=== PATIENT | male | born 1990 | race Caucasian/White ===

== ENCOUNTER 2019-01-08 15:03 | Outpatient (REF) | payer MEDICAID, SELFPAY ==
[2019-01-08 21:46] LABS: Abs Immature Grans 0.03 k/cumm (0.0-0.09); Absolute Basophil Count 0.03 k/cumm (0.0-0.2); Absolute Eosinophil Count 0.11 k/cumm (0.0-0.7); Absolute Monocyte Count 0.42 k/cumm (0.11-0.7); Absolute Neutrophil Count 4.51 k/cumm (1.2-6.7); Basophils % 0.4; Eosinophils % 1.4; HCT 44.9 % (40.0-50.0); HGB 15.1 g/dL (13.5-17.5); Immature Grans % 0.4; Lymphocytes % 36.3; Mean Corp. HGB Concentration 33.6 g/dL (32.0-36.0); Mean Corpuscular Hemoglobin 30.3 pg (27.0-33.0); Mean Platelet Volume 11.2 fL (8.0-11.0); Monocytes % 5.3; Neutrophils % 56.2; Platelet Count 246 x1000/uL (130-400); RBC 4.99 m/cumm (4.50-6.00); RBC Distribution Width 12.9 % (11.8-14.1)
[2019-01-08 22:43] LABS: ALT 20 U/L (12-78); AST 8 U/L (15-37); Albumin 4.4 g/dL (3.4-5.0); Alkaline Phosphatase 95 U/L (46-116); Anion Gap 7.4 mmol/L (3-11); BUN 9 mg/dL (7-18); Bilirubin, Total 0.2 mg/dL (0.2-1.0); CO2 33.6 mmol/L (21.0-32.0); CREATININE 0.95 mg/dL (0.70-1.30); Calcium 9.9 mg/dL (8.5-10.1); Chloride 99 mmol/L (98-107); Glucose 90 mg/dL (70-100); Potassium 4.8 mmol/L (3.5-5.1); Sodium 140 mmol/L (136-145); TSH (W/Ref FT4) 0.72 uIU/mL (0.358-3.74); Total Protein 8.1 g/dL (6.4-8.2); Vitamin B12 432 pg/mL (193-986)
== END 2019-01-08 15:23 ==
LOC: NCHCN 15:03
PROVIDERS: Visit Provider Nurse Practitioner Family
DX: F41.9 Anxiety disorder, unspecified (principal); F32.1 Major depressive disorder, single episode, moderate
CPT/HCPCS: 80053; 82607; 84443; 85025

== ENCOUNTER 2019-01-25 19:01 | Emergency (ER) | payer MEDICAID, SELFPAY ==
[2019-01-25] VITALS (11 sets, daily range): BP systolic 122–138; BP diastolic 62–86; PULSE 72–85; RESP 9–20; TEMP 36.6–37; O2SAT 96–98
[2019-01-25] MEDS: Aspirin 81 MG CHEW 324 MG CH (19:10)
--- NOTE | 2019-01-25 19:12 | W.ED.GENAD ---
Discharge Plan Disposition Patient Disposition: HOME Condition: Stable Discharge Details Chief Complaint: Chest Pain Clinical Impression: Chest pain Primary Care Provider: EDY ESPINOZA ED Provider: Memo Stoll Home Meds and New Rx's Prescriptions: No Action methadone 10 mg/5 mL Solution 105 mg PO DAILY RF: 0 Discharge Instructions Instructions: Chest Pain (ED) Additional Instructions: your blood work, ekg and chest xray were normal. follow up with your primary care provider within 1-2 weeks you can take 1000mg tylenol and 600mg ibuprofen every 6 hours for pain as needed if you have new symptoms such as high fevers or shortness of breath return to the emergency department Medical Decision Making 28 yo male with former substance abuse on methadone, denies drug use recently other than marijuana, smoker, no chronic medical problems, comes in with chest pain on the left anterior chest wall constant for months. Denies fevers, chills, sob, pain with exertion, radiation of pain. He has pain with palpation to the left anterior chest wall. I suspect costochrondritis, heart score is 1, will send troponin. Wells low and perc negative so doubt Pe at this time. No tearing back pain and normal vascular exam and symptoms do not seem consistent with dissection. will obtain xray to eval for possible ptx though has clear lungs. No fever or cough so doubt pna. No murmurs or stigmata of endocarditis so doubt this at this time and no distant heart sounds or jvd so doubt pericardial effusion/tamponade. Differential Diagnosis costochrondritis, pericarditis, ptx, pleurisy ECG Data Attestation: I personally reviewed and interpreted this ECG (s) as follows: Prior ECG tracings: not available for review Interpretation: sinus rhythm, rate of 83, pr 132, no acute st t wave ischemic findings HPI General Mode of arrival: ambulatory. Date/Time Provider Initiated Documentation: 01/25/19 19:04. Limitations to Documentation: no limitations. Information obtained by: patient. History of Present Illness 28 year old M presents to the emergency department with the chief complaint of chest pain, described as moderate, Quality is described as stabbing and aching, and is localized to the chest. Patient reports no radiation. Patient started experiencing this month(s) (2) and it has been constant. No relieving factors improve symptom(s), No exacerbating factors reported . Patient notes no other symptoms.. Patient did receive the following treatments prior to arrival, none Related Data Home Medications Medication Instructions Recorded Confirmed methadone 105 mg PO DAILY 01/25/19 01/25/19 Allergies Allergy/AdvReac Type Severity Reaction Status Date / Time sulfamethoxazole AdvReac Nausea Unverified 01/25/19 19:06 [From Bactrim] trimethoprim [From Bactrim] AdvReac Nausea Unverified 01/25/19 19:06 General Stated Complaint: Chest Pain GRACE: 2 Review of Systems Review of Systems All systems reviewed & are unremarkable except as noted in HPI and below Constitutional Denies chills, Denies fever(s) and Denies weakness ENT Denies change in voice Cardiovascular Denies dyspnea Respiratory Denies cough and Denies dyspnea Gastrointestinal Denies abdominal pain, Denies nausea and Denies vomiting Musculoskeletal Denies joint swelling Integumentary/Breasts Denies rash Neurologic Denies weakness [facility] Medical History Opiate addiction (Acute) Social History Smoking/Tobacco Use Status: Current every day Tobacco Type: cigarettes Years smoked: 12 Alcohol Intake: never Drug use: Current Sobriety Do you feel safe at home: Yes Do you feel safe in your relationship?: Yes Exam Const General: no acute distress Orientation: alert HENIN Head: normal to inspection Ears: external ears normal General nose exam: external nose normal Mouth: moist mucous membranes Eyes General: appearance normal, both eyes and all related structures Neck Neck: normal visual inspection Chest Chest: normal inspection of the chest, normal palpation of entire chest wall and no crepitus Resp Effort & Inspection: normal respiratory effort and able to speak in complete sentences Cardio Rate: regular rate Skin General skin exam: no rashes or lesions noted Neuro General: alert and oriented x3 Extrem General: normal to inspection Psych Mental Status: mental status grossly normal Course Vital Signs Temperature 37.0 C 01/25/19 19:04 Pulse 85 01/25/19 19:04 Respiratory Rate 20 01/25/19 19:04 Blood Pressure 138/86 01/25/19 19:04 Pulse Oximetry 97 01/25/19 19:04 Temperature 37.0 C 01/25/19 19:04 Temperature Source Skin 03/25/19 19:04 Pulse 85 01/25/19 19:04 Respiratory Rate 20 01/25/19 19:09 Respiratory Effort Non-Labored 01/25/19 19:09 Respiratory Depth Normal 01/25/19 19:09 Respiratory Pattern Normal 01/25/19 19:09 Blood Pressure 138/86 01/25/19 19:04 Blood Pressure Position Sitting 01/25/19 19:04 Pulse Oximetry 97 01/25/19 19:04 Oxygen Delivery Method Room Air 01/25/19 19:04 Oxygen Flow Rate 0 01/25/19 19:04 Pain Level 7 01/25/19 19:04
--- NOTE | 2019-01-25 19:17 | ED.GENADUL_ITS ---
Discharge Plan Disposition Patient Disposition: HOME Condition: Stable Discharge Details Chief Complaint: Chest Pain Clinical Impression: Chest pain Primary Care Provider: EDY ESPINOZA ED Provider: Memo Stoll Home Meds and New Rx's Prescriptions: No Action methadone 10 mg/5 mL Solution 105 mg PO DAILY RF: 0 Discharge Instructions Instructions: Chest Pain (ED) Additional Instructions: your blood work, ekg and chest xray were normal. follow up with your primary care provider within 1-2 weeks you can take 1000mg tylenol and 600mg ibuprofen every 6 hours for pain as needed if you have new symptoms such as high fevers or shortness of breath return to the emergency department Medical Decision Making 28 yo male with former substance abuse on methadone, denies drug use recently other than marijuana, smoker, no chronic medical problems, comes in with chest pain on the left anterior chest wall constant for months. Denies fevers, chills, sob, pain with exertion, radiation of pain. He has pain with palpation to the left anterior chest wall. I suspect costochrondritis, heart score is 1, will send troponin. Wells low and perc negative so doubt Pe at this time. No tearing back pain and normal vascular exam and symptoms do not seem consistent with dissection. will obtain xray to eval for possible ptx though has clear lungs. No fever or cough so doubt pna. No murmurs or stigmata of endocarditis so doubt this at this time and no distant heart sounds or jvd so doubt pericardial effusion/tamponade. Differential Diagnosis costochrondritis, pericarditis, ptx, pleurisy ECG Data Attestation: I personally reviewed and interpreted this ECG (s) as follows: Prior ECG tracings: not available for review Interpretation: sinus rhythm, rate of 83, pr 132, no acute st t wave ischemic findings HPI General Mode of arrival: ambulatory . Date/Time Provider Initiated Documentation: 01/25/19 19:04 . Limitations to Documentation: no limitations . Information obtained by: patient . History of Present Illness 28 year old M presents to the emergency department with the chief complaint of chest pain, described as moderate, Quality is described as stabbing and aching, and is localized to the chest. Patient reports no radiation. Patient started experiencing this month(s) (2) and it has been constant. No relieving factors improve symptom(s), No exacerbating factors reported . Patient notes no other symptoms.. Patient did receive the following treatments prior to arrival, none Related Data Home Medications Medication Instructions Recorded Confirmed methadone 105 mg PO DAILY 01/25/19 01/25/19 Allergies Allergy/AdvReac Type Severity Reaction Status Date / Time sulfamethoxazole AdvReac Nausea Unverified 01/25/19 19:06 [From Bactrim] trimethoprim [From Bactrim] AdvReac Nausea Unverified 01/25/19 19:06 General Stated Complaint: Chest Pain GRACE: 2 Review of Systems Review of Systems All systems reviewed & are unremarkable except as noted in HPI and below Constitutional Denies chills, Denies fever(s) and Denies weakness ENT Denies change in voice Cardiovascular Denies dyspnea Respiratory Denies cough and Denies dyspnea Gastrointestinal Denies abdominal pain, Denies nausea and Denies vomiting Musculoskeletal Denies joint swelling Integumentary/Breasts Denies rash Neurologic Denies weakness [facility] Medical History Opiate addiction (Acute) Social History Smoking/Tobacco Use Status: Current every day Tobacco Type: cigarettes Years smoked: 12 Alcohol Intake: never Drug use: Current Sobriety Do you feel safe at home: Yes Do you feel safe in your relationship?: Yes Exam Const General: no acute distress Orientation: alert HENKS Head: normal to inspection Ears: external ears normal General nose exam: external nose normal Mouth: moist mucous membranes Eyes General: appearance normal, both eyes and all related structures Neck Neck: normal visual inspection Chest Chest: normal inspection of the chest, normal palpation of entire chest wall and no crepitus Resp Effort & Inspection: normal respiratory effort and able to speak in complete sentences Cardio Rate: regular rate Skin General skin exam: no rashes or lesions noted Neuro General: alert and oriented x3 Extrem General: normal to inspection Psych Mental Status: mental status grossly normal Course Vital Signs Temperature 37.0 C 01/25/19 19:04 Pulse 85 01/25/19 19:04 Respiratory Rate 20 01/25/19 19:04 Blood Pressure 138/86 01/25/19 19:04 Pulse Oximetry 97 01/25/19 19:04 Temperature 37.0 C 01/25/19 19:04 Temperature Source Skin 03/25/19 19:04 Pulse 85 01/25/19 19:04 Respiratory Rate 20 01/25/19 19:09 Respiratory Effort Non-Labored 01/25/19 19:09 Respiratory Depth Normal 01/25/19 19:09 Respiratory Pattern Normal 01/25/19 19:09 Blood Pressure 138/86 01/25/19 19:04 Blood Pressure Position Sitting 01/25/19 19:04 Pulse Oximetry 97 01/25/19 19:04 Oxygen Delivery Method Room Air 01/25/19 19:04 Oxygen Flow Rate 0 01/25/19 19:04 Pain Level 7 01/25/19 19:04
[2019-01-25 19:24] LABS: Abs Immature Grans 0.01 k/cumm (0.0-0.09); Absolute Basophil Count 0.02 k/cumm (0.0-0.2); Absolute Eosinophil Count 0.18 k/cumm (0.0-0.7); Absolute Neutrophil Count 3.05 k/cumm (1.2-6.7); Basophils % 0.3; Eosinophils % 2.6; HCT 39.5 % (40.0-50.0); HGB 13.5 g/dL (13.5-17.5); Immature Grans % 0.1; Lymphocytes % 45.2; Mean Corp. HGB Concentration 34.2 g/dL (32.0-36.0); Mean Corpuscular Hemoglobin 30.8 pg (27.0-33.0); Mean Corpuscular Volume 90.2 fL (80-95); Mean Platelet Volume 10.2 fL (8.0-11.0); Monocytes % 7.3; Neutrophils % 44.5; Platelet Count 189 x1000/uL (130-400); RBC 4.38 m/cumm (4.50-6.00); RBC Distribution Width 13.3 % (11.8-14.1); White Blood Cell Count 6.86 k/cumm (4.4-10.8)
--- NOTE | 2019-01-25 19:25 | DI.RAD_ITS ---
SYMPTOM/DIAGNOSIS: LT SIDED CHEST PAIN PA AND LATERAL CHEST: The heart is normal in size. The lungs are clear. The mediastinal structures and pleura appear intact. CONCLUSION: Normal chest.
[2019-01-25 19:37] LABS: ALT 42 U/L (12-78); AST 58 U/L (15-37); Albumin 3.9 g/dL (3.4-5.0); Alkaline Phosphatase 89 U/L (46-116); Anion Gap 10.6 mmol/L (3-11); BUN 11 mg/dL (7-18); Bilirubin, Total 0.2 mg/dL (0.2-1.0); CO2 28.4 mmol/L (21.0-32.0); CREATININE 0.94 mg/dL (0.70-1.30); Calcium 9.1 mg/dL (8.5-10.1); Chloride 101 mmol/L (98-107); Glucose 132 mg/dL (70-100); Potassium 3.7 mmol/L (3.5-5.1); Sodium 140 mmol/L (136-145); Total Protein 7.2 g/dL (6.4-8.2)
--- NOTE | 2019-01-25 19:42 | DI.VRAD_ITS ---
EXAM: XR Chest, 2 Views EXAM DATE/TIME: 01/25/2019 7:05 PM CLINICAL HISTORY: 28 years old, male; Pain; Chest pain; Left-sided chest pain; Patient HX: Chest pain on left side today TECHNIQUE: Imaging protocol: XR of the chest, 2 views. COMPARISON: No relevant prior studies available. FINDINGS: Lungs: Unremarkable. No consolidation. Pleural space: Unremarkable. No pleural effusion. No pneumothorax. Heart/Mediastinum: Unremarkable. No cardiomegaly. Bones/joints: Unremarkable. Other: There is an air-fluid level in stomach. IMPRESSION: 1. No focal consolidation or pneumothorax. If symptoms remain concerning, consider alternative imaging modalities. Dictated and Authenticated by: Emma Saha MD. Ordering:AMBERLY Hampton MD
[2019-01-25 19:54] LABS: Troponin I < 0.02 ng/mL (0.00-0.06)
== END 2019-01-25 20:05 | disposition home or self-care (01) ==
PROVIDERS: Emergency Provider Emergency Medicine; PCP Nurse Practitioner Family
DX: R07.9 Chest pain, unspecified (principal); F17.210 Nicotine dependence, cigarettes, uncomplicated
CPT/HCPCS: 36415; 80053; 93005; 99285; 71046; 83735; 84484; 85025; 93010

== ENCOUNTER 2019-01-29 20:04 | Emergency (ER) | payer MEDICAID, SELFPAY ==
[2019-01-29 20:07] VITALS: BP 144/85; PULSE 87; RESP 16; TEMP 36.5; O2SAT 98
[2019-01-29 20:17] VITALS: RESP 16
--- NOTE | 2019-01-29 20:18 | ED.GENADUL_ITS ---
Discharge Plan Disposition Patient Disposition: HOME Condition: Good Discharge Details Chief Complaint: OD/Poison Clinical Impression: Depression Primary Care Provider: EDY ESPINOZA ED Provider: Gray Hong Home Meds and New Rx's Prescriptions: Continued methadone 10 mg/5 mL Solution 105 mg PO DAILY RF: 0 sertraline 25 mg Tablet 25 mg PO DAILY RF: 0 Discharge Instructions Instructions: Depression (ED) Additional Instructions: We did not give you your methadone dose today. You should go to [facility] to obtain this. You should also reach out to your assigned therapist at [facility] and make an appointment for this week. Please return to the ED if feel unsafe or have any concerns. Referrals: EDY ESPINOZA [Primary Care Provider] - Medical Decision Making Patient here with depressed feelings and seeking help. Took extra antidepressant today not to harm himself but to try to make himself feel better. Denies being suicidal or homicidal currently. Would like to speak to mental health and get some outpatient help. We will go ahead and get basic labs but I do not think he needs a sitter. He is voluntary and is here just to see mental health for outpatient follow-up. 22:30 -patient's laboratory studies are unremarkable other than his aspirin level being 7.5. On questioning he states he did not take anything other than methadone and sertraline today. I will probably just repeat an aspirin in a little while. He has been seen by mental health. He has definitely depressed. He is willing to think about inpatient admission. He denies being suicidal or homicidal and we cannot involuntarily commit him. Is willing to stay here overnight and be reevaluated by mental health in the morning and consider inpatient admission at that time. He does not require a sitter at this point. He has been completely cooperative and is voluntarily here. 01:15 -patient's repeat salicylate level is 7. It is not going up. He is medically cleared. We will have him reevaluated by mental health in the morning. Hopefully by then he will have decided on inpatient admission. 07:30 -patient aspirin level went down to 7 and did not go higher. He slept and he seems brighter this morning. We did call down to the clinic and confirmed his methadone dose. However, in speaking with him this morning he would like to go. He does understand that nothing has really changed between last night and this morning. However, he feels better and wishes to go home and talk things over with his parents. His mood does seem better. We discussed safety and what to do including returning to ED. He will reach out to his assigned therapist at [facility]. Lab Data Lab results reviewed: Yes I reviewed the patient's lab results. HPI General Mode of arrival: ambulatory . Date/Time Provider Initiated Documentation: 01/29/19 20:04 . Limitations to Documentation: no limitations . Information obtained by: patient . HPI Narrative: Patient presents to ED with complaints of feeling depressed. There is a fair amount of social stressors including the of his grandmother last month and a break-up with his girlfriend last week. He is becoming more and more depressed. He does not feel actively suicidal or homicidal. He does feel sad and hopeless. He did take 4 or 5 extra sertraline today, not in attempt to harm himself but in attempt to make himself feel better. He has no physical complaints of. He denies any other drug ingestion. He does have a prior history of drug abuse but currently is on methadone through the [facility] clinic. He does use marijuana at night to sleep. He came in to get some help and see mental health. He has been assigned a therapist in the past but has chose not to follow-up with him. He does take the sertraline. Related Data Home Medications Medication Instructions Recorded Confirmed methadone 105 mg PO DAILY 01/25/19 01/29/19 sertraline 25 mg PO DAILY 01/29/19 01/29/19 Allergies Allergy/AdvReac Type Severity Reaction Status Date / Time sulfamethoxazole AdvReac Nausea Unverified 01/29/19 20:14 [From Bactrim] trimethoprim [From Bactrim] AdvReac Nausea Unverified 01/29/19 20:14 General Stated Complaint: OD/Poison GRACE: 2 Review of Systems Review of Systems 08/16 Review of Systems completed and is negative except as stated above in HPI (Systems reviewed: Const, Eyes, ENT, Resp, CV, GI, , MSK, Skin, Neuro) [facility] Medical History Opiate addiction (Acute) Surgical History S/P tendon repair (Acute) Social History Smoking/Tobacco Use Status: Current every day Tobacco Type: cigarettes Alcohol Intake: never Drug use: Daily Substance use type: marijuana Do you feel safe at home: Yes Do you feel safe in your relationship?: Yes Exam Narrative Exam Narrative: 1. Const: WDWN MALE in NAD. 2. Eyes: No conjunctival injection or scleral icterus. 3. ENT: NC/AT. No facial swelling or tenderness. Mucous membranes moist. 4. Neck: Supple without adenopathy. Trachea midline. 5. CVS: +S1/S2, No murmurs or gallops. 6. RESP: Unlabored respiratory effort. Clear to auscultation bilaterally. No wheezes rales or rhonchi 7. MSK: No C/C/E present. No deformity or tenderness noted. 8. Skin: Warm, Dry. No rashes. 9. Neuro: A&O x3. belt notcher II-XII grossly intact. Sensation grossly intact, no focal neurologic deficits. 10. Psych: Depressed mood and affect. Feels sad and hopeless but is not suicidal or homicidal. No hallucinations. Course Vital Signs Temperature 97.7 F 01/29/19 20:07 Pulse 87 01/29/19 20:07 Respiratory Rate 16 01/29/19 20:07 Blood Pressure 144/85 H 01/29/19 20:07 Pulse Oximetry 98 01/29/19 20:07 Temperature 97.7 F 01/29/19 20:07 Temperature Source Skin 01/29/19 20:07 Pulse 87 01/29/19 20:07 Respiratory Rate 16 01/29/19 20:07 Respiratory Effort Non-Labored 01/29/19 20:11 Blood Pressure 144/85 H 01/29/19 20:07 Pulse Oximetry 98 01/29/19 20:07 Pain Level 7 01/29/19 20:07
[2019-01-29 21:00] LABS: *AMPHETAMINES SCREEN URINE Negative (Negative); *BARBITURATES SCREEN URINE Negative (Negative); *BENZODIAZEPINES SCREEN URINE Negative (Negative); Cannabinoids THC Negative (Negative); Cocaine Screen,Urine Negative (Negative); METHADONE URINE SCREEN POSITIVE (Negative); OPIATES URINE SCREEN Negative (Negative); Tricyclic Antidepressants Negative (Negative)
[2019-01-29 21:23] LABS: ALT 32 U/L (12-78); AST 16 U/L (15-37); Albumin 4.3 g/dL (3.4-5.0); Alkaline Phosphatase 90 U/L (46-116); Anion Gap 10.9 mmol/L (3-11); BUN 6 mg/dL (7-18); Bilirubin, Total 0.2 mg/dL (0.2-1.0); CO2 28.1 mmol/L (21.0-32.0); CREATININE 0.95 mg/dL (0.70-1.30); Calcium 9.1 mg/dL (8.5-10.1); Chloride 100 mmol/L (98-107); Glucose 71 mg/dL (70-100); Potassium 3.5 mmol/L (3.5-5.1); Sodium 139 mmol/L (136-145); TSH (W/Ref FT4) 1.18 uIU/mL (0.358-3.74)
[2019-01-29 21:25] LABS: ETHANOL BLOOD < 3.0 mg/dL (<3)
[2019-01-29 21:54] LABS: Acetaminophen < 2 ug/mL (10-30); Salicylate 7.5 mg/dL (2.8-20.0)
--- NOTE | 2019-01-29 23:09 | PDOC.MHCN ---
Date of service: 01/29/19 Time of Service: 23:09 Mental Health Crisis Note Presenting Issue How did you arrive at the ED and why did you come: Patient presents in the ED after taking 4 or 5 of his anti-depressant. Precipitating Factors Patient reports being depressed for several years. Over the past month, his depression has worsened due to the of his grandmother and a recent break-up with his girlfriend of two years. This evening, he took extra Sertraline in the hopes the extra medication would help him feel better. Shortly after taking the medication, he regretted having taking extra pills and feared it may harm him, so he came to the hospital. Disposition BEHAVIOR: Cooperative. EYE CONTACT: Good. MOOD: Depressed. AFFECT: Subdued, congruent to mood. APPETITE: Good. SLEEP(trouble falling/staying asleep: Good. Plan Patient refuses a voluntary inpatient admission. He does not meet criteria for an EE. Patient is instructed to follow-up with his counselor at [facility] on Friday morning. He is also provided with contact information for [facility] emergency services and will call as needed. Patient is remaining at [facility] overnight for observation, per Dr. Hong. Signature Clinician's Name/Title: Mary Greer BA, [facility] Detasseling Crew Supervisor
--- NOTE | 2019-01-29 23:24 | PDOC.MHCN_ITS ---
Date of service: 01/29/19 Time of Service: 23:09 Mental Health Crisis Note Presenting Issue How did you arrive at the ED and why did you come: Patient presents in the ED after taking 4 or 5 of his anti-depressant. Precipitating Factors Patient reports being depressed for several years. Over the past month, his depression has worsened due to the of his grandmother and a recent break- up with his girlfriend of two years. This evening, he took extra Sertraline in the hopes the extra medication would help him feel better. Shortly after taking the medication, he regretted having taking extra pills and feared it may harm him, so he came to the hospital. Disposition BEHAVIOR: Cooperative. EYE CONTACT: Good. MOOD: Depressed. AFFECT: Subdued, congruent to mood. APPETITE: Good. SLEEP(trouble falling/staying asleep: Good. Plan Patient refuses a voluntary inpatient admission. He does not meet criteria for an EE. Patient is instructed to follow-up with his counselor at [facility] on Friday morning. He is also provided with contact information for [facility] emergency services and will call as needed. Patient is remaining at [facility] overnight for observation, per Dr. Hong. Signature Clinician's Name/Title: Mary Greer BA, [facility] Administrative Project Coordinator
--- NOTE | 2019-01-29 23:37 | NUR.NOTE ---
Nursing Note: attempted to ambulate post medication. patient was able to stand and bear weight on the leg but was not able to walk. returned to bed, notified.
[2019-01-30 07:45] VITALS: BP 130/80; PULSE 87; RESP 16; TEMP 36.5; O2SAT 98
== END 2019-01-30 07:47 | disposition home or self-care (01) ==
PROVIDERS: Emergency Provider Emergency Medicine; PCP Nurse Practitioner Family
DX: F32.9 Major depressive disorder, single episode, unspecified (principal); T43.201A Poisoning by unspecified antidepressants, accidental (unintentional), initial encounter
CPT/HCPCS: 36415; 80053; 80307; 99284; 80320; 80329; 84443

== ENCOUNTER 2019-06-17 08:39 | Outpatient (CLI) | payer MEDICAID, SELFPAY | END 2019-06-17 08:59 | PROVIDERS: PCP Nurse Practitioner Family; Visit Provider Nurse Practitioner Family | DX: Z79.899 Other long term (current) drug therapy (principal); F11.20 Opioid dependence, uncomplicated; Z13.6 Encounter for screening for cardiovascular disorders | CPT/HCPCS: 93005; 93010 ==